=== PATIENT | female | born 1975 | race Caucasian/White ===

== ENCOUNTER → 2017-11-07 15:33 | Outpatient (CLI) | payer MEDICAID, SELFPAY ==
[2017-11-07 20:44] LABS: Chlamydia Trachomatis by PCR Negative (Negative); Neisserai gonorrhoeae by PCR Negative (Negative); Probe Check PASS; Sample Adequacy Control PASS; Specimen Processing Control PASS
[2017-11-10 14:08] LABS: HPV Reflexed? NOT INDICATED
== END ==
PROVIDERS: Visit Provider Obstetrics & Gynecology
DX: Z12.4 Encounter for screening for malignant neoplasm of cervix (principal); Z11.3 Encounter for screening for infections with a predominantly sexual mode of transmission
CPT/HCPCS: 87491; 87591; 88175; G0145

== ENCOUNTER → 2017-11-25 11:43 | Outpatient (CLI) | payer MEDICAID, SELFPAY ==
[2017-11-25 13:41] LABS: Color, Urine Straw (Yellow); Glucose, Dipstick Normal (Normal); Ketone-Dipstick Negative (Negative); Leukocyte Esterase-Dipstick 500 /ul (Negative); Nitrite-Dipstick Negative (Negative); Occult Blood-Urine Negative /ul (Negative); Protein-Dipstick Negative (Negative); Specific Gravity, Urine 1.005 (1.002-1.030); Urine Bilirubin Dipstick Negative (Negative); Urine Clarity Clear (Clear); Urine Urobilinogen Normal (Normal)
[2017-11-25 13:52] LABS: Amphetamine Urine VISTA NEGATIVE (<1000 ng/mL); Barbiturate Urine VISTA NEGATIVE (< 200 ng/mL); Benzodiazepine Urine VISTA NEGATIVE (< 200 ng/mL); Cocaine Urine VISTA NEGATIVE (< 300 ng/mL); Ecstacy Urine VISTA NEGATIVE (< 500 ng/mL); Methadone Urine VISTA NEGATIVE (< 300 ng/mL); PCP Urine VISTA NEGATIVE (< 25 ng/mL); THC Urine VISTA NEGATIVE (< 50 ng/mL); Vista UDS pH Range 7
[2017-11-25 14:06] LABS: Absolute Lymphocyte Count 1.83 X10^3/ul (0.83-4.51); Absolute Neutrophil Count 5.6 X10^3/uL (2.0-7.7); Basophil# 0.02 X10^3/uL; Basophil% 0.3 % (0-1); Eosinophil# 0.07 X10^3/uL; Eosinophils% 0.9 % (0-5); Hematocrit 42.5 % (37-47); Hemoglobin 13.8 g/dl (12.0-15.0); Lymphocyte # 1.83 X10^3/ul (4.0); Lymphocyte % 23.1 % (19-41); Mean Corp Hgb Conc 32.5 g/gl (32-36); Mean Corpuscular Hgb 30.6 pg (27.0-32.0); Mean Corpuscular Volume 94.2 fL (81-99); Mean Platelet Vol. 10.1 fl (6.2-12.0); Monocyte# 0.41 X10^3/uL; Monocyte% 5.2 % (0-10); Neutrophil # 5.57 X10^3/uL (2.7-7.7); Neutrophil % 70.2 % (47-70); Platelet Count 223 K/mm3 (150-450); RBC Distribution Width CV 13.2 % (11.6-14.6); RBC Distribution Width SD 45.7 fl (35.1-43.9); Red Blood Count 4.51 M/mm3 (4.2-5.4); White Blood Count 7.9 K/mm3 (4.4-11.0)
[2017-11-25 14:08] LABS: Thyroid Stim Hormone (TSH) 0.51 uIU/mL (0.358-3.74)
[2017-11-25 14:12] LABS: POSITIVE COUNT NO; POSITIVE DIFFERENTIAL NO; POSITIVE MORPHOLOGY NO
[2017-11-25 14:49] LABS: HIV - WCH Non-Reactive (Nonreactive)
[2017-11-26 10:58] LABS: HEPATITIS B SURFACE AG Negative (Negative); Hep C Antibodies <0.1 s/co ratio (0.0-0.9)
[2017-12-02 01:20] LABS: Prenatal RPR NONREACTIVE (NONREACTIVE)
== END ==
PROVIDERS: Visit Provider Obstetrics & Gynecology
DX: Z34.81 Encounter for supervision of other normal pregnancy, first trimester (principal)
CPT/HCPCS: 36415; 80307; 81002; 84443; 85025; 86703; 86762; 86803; 87340

== ENCOUNTER → 2018-03-17 09:15 | Outpatient (CLI) | payer MEDICAID, SELFPAY ==
[2018-03-17 11:06] LABS: Hematocrit 35.6 % (37-47); Hemoglobin 11.5 g/dl (12.0-15.0); Mean Corp Hgb Conc 32.3 g/gl (32-36); Mean Corpuscular Hgb 31.9 pg (27.0-32.0); Mean Corpuscular Volume 98.6 fL (81-99); Mean Platelet Vol. 9.8 fl (6.2-12.0); Platelet Count 231 K/mm3 (150-450); RBC Distribution Width CV 12.9 % (11.6-14.6); RBC Distribution Width SD 45.1 fl (35.1-43.9); Red Blood Count 3.61 M/mm3 (4.2-5.4); White Blood Count 6.2 K/mm3 (4.4-11.0)
[2018-03-17 11:07] LABS: Scan Indicated on CBC? Y/N NO
[2018-03-17 11:32] LABS: Glucose Challenge Gest 1H 50g 81 mg/dL (70-140)
== END ==
PROVIDERS: Visit Provider Obstetrics & Gynecology
DX: Z34.82 Encounter for supervision of other normal pregnancy, second trimester (principal)
CPT/HCPCS: 36415; 82950; 85027

== ENCOUNTER → 2018-05-22 17:06 | Outpatient (CLI) | payer MEDICAID, SELFPAY | PROVIDERS: Visit Provider Obstetrics & Gynecology | DX: Z36.85 Encounter for antenatal screening for Streptococcus B (principal) | CPT/HCPCS: 87081 ==

== ENCOUNTER 2018-06-20 06:48 | Inpatient (IN) | payer MEDICAID, SELFPAY ==
[2018-06-20 06:57] VITALS: BMI 27.3
[2018-06-20] MEDS: Oxytocin 30 units/NS 500 ml 30 UNITS/500 ML IV.SOLN IV (08:00)
[2018-06-20] MEDS: Lactated Ringers 1,000 ML 50 ML IV ×2 (08:00→14:19)
[2018-06-20 09:11] LABS: Hematocrit 36.9 % (37-47); Hemoglobin 11.9 g/dl (12.0-15.0); Mean Corp Hgb Conc 32.2 g/gl (32-36); Mean Corpuscular Hgb 31.2 pg (27.0-32.0); Mean Corpuscular Volume 96.6 fL (81-99); Mean Platelet Vol. 9.9 fl (6.2-12.0); Platelet Count 182 K/mm3 (150-450); RBC Distribution Width CV 14.1 % (11.6-14.6); RBC Distribution Width SD 49.9 fl (35.1-43.9); Red Blood Count 3.82 M/mm3 (4.2-5.4); White Blood Count 7.2 K/mm3 (4.4-11.0)
[2018-06-20 09:12] LABS: Scan Indicated on CBC? Y/N NO
--- NOTE | 2018-06-20 11:55 | PCM.PN.BLA ---
Progress Note 40 5/7 wk induction. Feeling some UCs. nothing very painful AVSS pitocin at 6 mIU/min EFM 120-130s with avg variability. Accels. UCs q 2-3 min for most part CX: /-3 vtx well applied to cervix. AROM mod clear fluid noted A/P: 40 5/7 wk EGA Pitocin induction. AROM now. Continue induction OK for epidural if requested. Anticipate .
[2018-06-20] MEDS: fentaNYL-bupivacaine (epidural) 100 ML BAG EPIDURAL (14:45)
[2018-06-20] MEDS: Ondansetron 4 MG/2 ML Vial IV (15:20)
[2018-06-20] MEDS: Oxytocin 30 units/NS 500 ml 30 UNITS/500 ML IV.SOLN 334 UNITS IV (17:24)
[2018-06-20] MEDS: Oxytocin 30 units/NS 500 ml 30 UNITS/500 ML IV.SOLN 167 UNITS IV (17:54)
--- NOTE | 2018-06-20 17:54 | PCM.OB.VAG ---
Vaginal Delivery Maternal Presentation: Medically Indicated Induction Method of Induction: Pitocin, Amniotomy Amniotic Membrane Rupture Type: Artificial Amniotic Fluid Description: Clear Final ARISTIDES: 06/15/18 Final ARISTIDES Source: US <20 weeks Gestational age: 40 Weeks and 5 Days Date of Procedure: 06/20/18 Pre-Operative Diagnosis: 40 5/7 wk induction Post-Operative Diagnosis: same Surgery/ Procedure Performed: Spontaneous Vaginal Delivery Type of Anesthesia: Epidural Description of Procedure: of a tay viable female over 2nd deg midline episiotomy. Head delivered JILL. OP and nares bulb suctioned on perineum. Loose nuchal cord / body cord noted. Shoulders delivered through cord. Cord around body, ankle reduced. Infant to maternal abdomen. Delayed cord clamping employed. Cord clamped x two and cut. Routine cord blood for typing collected. Ap 8/9 Weight pending PP exam; Midline episiotomy repaired to hemostatic, intact under epidural with 3-0 Vicryl suture. Abrasions noted at posterior perineum, and anterior labia/periurethral tissue. All hemostatic. Placenta delivered by spont expulsion, expression 3v normal appearing, intact with trailing membranes EBL 350 cc Pt and infant tolerated delivery well. To recovery in stable condition Presentation: Vertex Placental Delivery Description: Spontaneous, Expressed Placenta Disposition: [facility] Cord Vessel Description: 3 Vessels Cord Entanglement: Around neck x 1, loose - around ankle also , around body. Reduced all at delivery. Estimated Blood Loss: 350 A gender: Female (1 minute): 8 (5 minute): 9 Episiotomy Description: Midline Laceration: None - abrasions only Medications given after delivery: IV Pitocin Complications: None
--- NOTE | 2018-06-20 17:59 | OP.PCM_ITS ---
Vaginal Delivery Maternal Presentation: Medically Indicated Induction Method of Induction: Pitocin, Amniotomy Amniotic Membrane Rupture Type: Artificial Amniotic Fluid Description: Clear Final ARISTIDES: 06/15/18 Final ARISTIDES Source: US <20 weeks Gestational age: 40 Weeks and 5 Days Date of Procedure: 06/20/18 Pre-Operative Diagnosis: 40 5/7 wk induction Post-Operative Diagnosis: same Surgery/ Procedure Performed: Spontaneous Vaginal Delivery Type of Anesthesia: Epidural Description of Procedure: of a tay viable female over 2nd deg midline episiotomy. Head delivered JILL. OP and nares bulb suctioned on perineum. Loose nuchal cord / body cord noted. Shoulders delivered through cord. Cord around body, ankle reduced. Infant to maternal abdomen. Delayed cord clamping employed. Cord clamped x two and cut. Routine cord blood for typing collected. Ap 8/9 Weight pending PP exam; Midline episiotomy repaired to hemostatic, intact under epidural with 3-0 Vicryl suture. Abrasions noted at posterior perineum, and anterior labi a/periurethral tissue. All hemostatic. Placenta delivered by spont expulsion, expression 3v normal appearing, intact with trailing membranes EBL 350 cc Pt and tolerated delivery well. To recovery in stable condition Presentation: Vertex Placental Delivery Description: Spontaneous, Expressed Placenta Disposition: [facility] Cord Vessel Description: 3 Vessels Cord Entanglement: Around neck x 1, loose - around ankle also , around body. R educed all at delivery. Estimated Blood Loss: 350 A gender: Female (1 minute): 8 (5 minute): 9 Episiotomy Description: Midline Laceration: None - abrasions only Medications given after delivery: IV Pitocin Complications: None
[2018-06-20] MEDS: Ibuprofen 600 MG Tablet PO (23:58)
[2018-06-21] VITALS: BP 125/59; PULSE 95; RESP 16; TEMP 36.6; O2SAT 97
[2018-06-21] MEDS: Acetaminophen 500 MG Tablet 1000 MG PO (04:27)
[2018-06-21 04:31] VITALS: BP 111/60; PULSE 77; RESP 16; TEMP 36.5; O2SAT 97
[2018-06-21 06:00] LABS: Hematocrit 32.4 % (37-47); Hemoglobin 10.7 g/dl (12.0-15.0); Mean Corpuscular Hgb 31.6 pg (27.0-32.0); Mean Corpuscular Volume 95.6 fL (81-99); Mean Platelet Vol. 9.6 fl (6.2-12.0); Platelet Count 148 K/mm3 (150-450); RBC Distribution Width CV 13.9 % (11.6-14.6); RBC Distribution Width SD 48.5 fl (35.1-43.9); Red Blood Count 3.39 M/mm3 (4.2-5.4); White Blood Count 11.3 K/mm3 (4.4-11.0)
[2018-06-21 06:12] LABS: Scan Indicated on CBC? Y/N NO
--- NOTE | 2018-06-21 06:39 | PCM.DCVAG ---
Discharge Diet: No Restrictions Discharge Activity: May Shower, May Take a Tub Bath May resume sexual activity in: 4-6 weeks Additional Activity Instructions:: Nothing in the vagina for 4-6 weeks. You may return to work/school in 6 weeks. Additional Instructions: If you experience any of the following, contact your healthcare provider. Bleeding that soaks a pad every hour for 2 hours Fever 100.4 or higher Unrelieved abdominal pain Problems urinating (including inability to urinate or burning while urinating). Visual changes Severe headache Flu-like symptoms Pain or redness in one of both of your breasts Pain, warmth, tenderness or swelling in your legs, especially the calf area Frequent nausea and vomiting Symptoms of depression or anxiety If you experience any of the following, call 911 or go to the nearest Emergency Room. Chest pain Problems breathing Seizure activity Partial or complete paralysis of a body part, slurred speech, weakness or drooping of the face, or a sudden inability to walk or hold your balance Allergies/Adverse Reactions: Allergies amoxicillin Allergy (Verified 06/20/18 07:27) Rash Medications to take at Discharge Vits [Prenatabs FA] 1 tablet PO DAILY 06/20/18 Please Follow Up With: Ivania Saldivar MD - [phone] When: Call to make an appointment with your doctor in 6 weeks. Primary Care Physician: Care Physician,No Primary [Primary Care Provider] - Test Results: Test results from this visit will be discussed in further detail at your follow-up appointment, if applicable. Proposed Discharge Date: 06/22/18
--- NOTE | 2018-06-21 06:40 | DCINST_ITS ---
Discharge Diet: No Restrictions Discharge Activity: May Shower, May Take a Tub Bath May resume sexual activity in: 4-6 weeks Additional Activity Instructions:: Nothing in the vagina for 4-6 weeks. You may return to work/school in 6 weeks. Additional Instructions: If you experience any of the following, contact your healthcare provider. * Bleeding that soaks a pad every hour for 2 hours * Fever 100.4 or higher * Unrelieved abdominal pain * Problems urinating (including inability to urinate or burning while urinating). * Visual changes * Severe headache * Flu-like symptoms * Pain or redness in one of both of your breasts * Pain, warmth, tenderness or swelling in your legs, especially the calf area * Frequent nausea and vomiting * Symptoms of depression or anxiety If you experience any of the following, call 911 or go to the nearest Emergency Room. * Chest pain * Problems breathing * Seizure activity * Partial or complete paralysis of a body part, slurred speech, weakness or drooping of the face, or a sudden inability to walk or hold your balance Allergies/Adverse Reactions: Allergies amoxicillin Allergy (Verified 06/20/18 07:27) Rash Medications to take at Discharge Vits [Prenatabs FA] 1 tablet PO DAILY 06/20/18 Please Follow Up With: Ivania Saldivar MD - [phone] When: Call to make an appointment with your doctor in 6 weeks. Primary Care Physician: Care Physician,No Primary [Primary Care Provider] - Test Results: Test results from this visit will be discussed in further detail at your follow- up appointment, if applicable. Proposed Discharge Date: 06/22/18
--- NOTE | 2018-06-21 06:52 | PCM.PN.OB ---
Subjective: PPD#1 Doing well. Baby nursing. Some pain with nursing at nipples, and cramping of uterus. Ibuprofen prn for this. No concerns voiced. Baby 7# 11 oz Objective: sitting up in chair, rocking baby. - Physical Exam General: Alert, Oriented x3, Cooperative, No apparent distress HEENT: Atraumatic Neck: Supple Neurological: Cranial nerves II-XII grossly intact Psych/Mental Status: Normal Affect Vital Signs Temp Pulse Resp BP Pulse Ox 97.7 F L 77 16 111/60 97 06/21/18 04:31 06/21/18 04:31 06/21/18 04:31 06/21/18 04:31 06/21/18 04:31 Oxygen Delivery Method Room Air Weight: 80.4 kg Body Mass Index (BMI) 27.3 Intake and Output for Last 24 Hours 06/19/18 06/20/18 06/21/18 23:59 23:59 23:59 Intake Total 2461 / 2461 Output Total 800 / 800 Balance 1661 / 1661 Laboratory Tests Past 24 Hrs 06/20/18 06/20/18 06/21/18 07:50 07:50 05:45 WBC 7.2 11.3 H RBC 3.82 L 3.39 L Hgb 11.9 L 10.7 L Hct 36.9 L 32.4 L MCV 96.6 95.6 MCH 31.2 31.6 MCHC 32.2 33.0 RDW 14.1 13.9 RDW Differential 49.9 H 48.5 H Plt Count 182 148 L MPV 9.9 9.6 Blood Type O POSITIVE Antibody Screen NEGATIVE Medical Necessity - Tobacco Use Smoking Status: Former smoker Assessment/Plan PPD#1 Doing well. Would like to go home today if baby released . RTO in 6 wk for pp check, prn sooner. Hold/cancel dischg if baby is not released to home today.
[2018-06-21 09:20] VITALS: BP 119/63; PULSE 95; RESP 20; TEMP 36.8
[2018-06-21] MEDS: Ibuprofen 600 MG Tablet PO (12:57)
[2018-06-21] MEDS: Prenatal Vits Tablet 1 TABLET PO (12:59)
[2018-06-21 13:00] VITALS: BP 131/71; PULSE 105; RESP 18; TEMP 36.3; O2SAT 97
[2018-06-21 17:00] VITALS: BP 104/48; PULSE 75; RESP 16; TEMP 36.8; O2SAT 96
--- NOTE | 2018-06-21 19:50 | NURSING ---
SW aware of PHQ-2 and PHQ-9 results - given resources by SW and pt. verbalized understanding. Pt. had stated no about feeling down depressed or hopeless, but then stated but, you know, I have extenuating circumstances with my and my kids... which led nursing to give pt. the PHQ-9 to complete. Score of 0 to PHQ-9.
--- NOTE | 2018-06-26 18:40 | NURSING ---
follow up phone complete and patient denies problems or concerns
--- OUTSIDE RECORDS SUMMARY | 2018-08-06 05:23 | XMS RPT_ITS ---
:1975 Author Organization OHIP Care Team Providers Name Role Phone Ivania Saldivar Admitting Unavailable Ivania Saldivar Attending Unavailable Ivania Saldivar Referring Unavailable Primay Care Physicia, No Primary Care Unavailable Ivania Saldivar Attending Unavailable Ivania Saldivar Attending Unavailable Ivania Saldivar Attending Unavailable Ivania Saldivar Attending Unavailable PROBLEMS PROBLEMS DATE TYPE CONDITION / CODE ATTENDING STATUS SOURCE 05/22/2018 Unknown Z36.85 - Encounter Ivania Saldivar Active [place] for Community screening for Hospital Streptococcus B / Repository Z36.85(ICD-10) 03/17/2018 Unknown Z34.82 - Encounter Ivania Saldivar Active [place] for supervision of Community other normal Hospital , second Repository trimester / Z34.82(ICD-10) 11/25/2017 Unknown Z34.81 - Encounter Ivania Saldivar Active [place] for supervision of Community other normal Hospital , first Repository trimester / Z34.81(ICD-10) 11/07/2017 Unknown Z12.4 - Encounter Ivania Saldivar Active [place] for screening for Community malignant neoplasm Hospital of cervix / Repository Z12.4(ICD-10) 11/07/2017 Unknown Z11.3 - Encounter Ivania Saldivar Active [place] for screening for Community infections with a Hospital predominantly Repository sexual mode of transmission / Z11.3(ICD-10) PROCEDURES PROCEDURES No Procedure Records FoundRESULTS RESULTS DISCHARGE INSTRUCTION Observed: 06/21/2018 Status: F Source: SARAH 6:40 AM [facility] REPOSITORY [facility] Medical Records Department [address] [place] [address] Instructions for Home/Discharge Instructions 06/21/18 0639 MR#: [id number] Acct: [id number] Name: WILLIS VERONICA Rep #: [id number] : 1975 43 From: Ivania Saldivar MD PCP: Care Physician, No Primary Status: ADM IN Discharge Diet: No Restrictions Discharge Activity: May Shower, May Take a Tub Bath May resume sexual activity in: 4-6 weeks Additional Activity Instructions:: Nothing in the vagina for 4-6 weeks. You may return to work/school in 6 weeks. Additional Instructions: If you experience any of the following, contact your healthcare provider. * Bleeding that soaks a pad every hour for 2 hours * Fever 100.4 or higher * Unrelieved abdominal pain * Problems urinating (including inability to urinate or burning while urinating). * Visual changes * Severe headache * Flu-like symptoms * Pain or redness in one of both of your breasts * Pain, warmth, tenderness or swelling in your legs, especially the calf area * Frequent nausea and vomiting * Symptoms of depression or anxiety If you experience any of the following, call 911 or go to the nearest Emergency Room. * Chest pain * Problems breathing * Seizure activity * Partial or complete paralysis of a body part, slurred speech, weakness or drooping of the face, or a sudden inability to walk or hold your balance Allergies/Adverse Reactions: Allergies amoxicillin Allergy (Verified 06/20/18 07:27) Rash Medications to take at Discharge Vits [Prenatabs FA] 1 tablet PO DAILY 06/20/18 Please Follow Up With: Ivania Saldivar MD - [phone] When: Call to make an appointment with your doctor in 6 weeks. Primary Care Physician: Care Physician,No Primary [Primary Care Provider] - Test Results: Test results from this visit will be discussed in further detail at your follow-up appointment, if applicable. Proposed Discharge Date: 06/22/18 06/21/18 0640 <Electronically signed by Ivania Saldivar MD> Date Ivania Saldivar MD CC: No Primary Care Physician CBC-COMPLETE BLOOD CNT Collected: 06/21/2018 Status: F Source: SARAH NO DIFF 5:45 AM [facility] REPOSITORY Order Comment: Reason for Laboratory Test Day #1 TYPE CODE TESTS RESULT OUT OF RANGE REFERENCE UNITS LAB L100.1000 4.4-11.0 K/mm3 High WBC 11.3 LAB L100.1200 4.2-5.4 M/mm3 Low RBC 3.39 LAB L100.1300 12.0-15.0 g/dl Low HGB 10.7 LAB L100.1400 37-47 % Low HCT 32.4 LAB L100.1500 81-99 fL Normal MCV 95.6 LAB L100.1600 27.0-32.0 pg Normal MCH 31.6 LAB L100.1700 32-36 g/gl Normal MCHC 33.0 LAB L100.1810 11.6-14.6 % Normal RDW CV 13.9 LAB L100.1820 35.1-43.9 fl High RDW SD 48.5 LAB L100.1900 150-450 K/mm3 Low PLT 148 LAB L100.2000 6.2-12.0 fl Normal MPV 9.6 Performed By: #### L100.0500 #### [facility] [address] [place], [address] OPERATIVE REPORT Observed: 06/20/2018 Status: F Source: WATERPROOF 6:00 PM [facility] REPOSITORY [facility] Medical Records Department [address] [place] [address] Operative Report 06/20/18 1754 MR#: [id number] Acct: [id number] Name: WILLIS VERONICA Rep #: [id number] : 1975 43 From: Ivania Saldivar MD PCP: Care Physician, No Primary Status: ADM IN Location: [place] [address] Vaginal Delivery Maternal Presentation: Medically Indicated Induction Method of Induction: Pitocin, Amniotomy Amniotic Membrane Rupture Type: Artificial Amniotic Fluid Description: Clear Final ARISTIDES: 06/15/18 Final ARISTIDES Source: US <20 weeks Gestational age: 40 Weeks and 5 Days Date of Procedure: 06/20/18 Pre-Operative Diagnosis: 40 5/7 wk induction Post-Operative Diagnosis: same Surgery/ Procedure Performed: Spontaneous Vaginal Delivery Type of Anesthesia: Epidural Description of Procedure: of a tay viable female over 2nd deg midline episiotomy. Head delivered JILL. OP and nares bulb suctioned on perineum. Loose nuchal cord / body cord noted. Shoulders delivered through cord. Cord around body, ankle reduced. to maternal abdomen. Delayed cord clamping employed. Cord clamped x two and cut. Routine cord blood for typing collected. Ap 8/9 Weight pending PP exam; Midline episiotomy repaired to hemostatic, intact under epidural with 3-0 Vicryl suture. Abrasions noted at posterior perineum, and anterior labia/periurethral tissue. All hemostatic. Placenta delivered by spont expulsion, expression 3v normal appearing, intact with trailing membranes EBL 350 cc Pt and tolerated delivery well. To recovery in stable condition Presentation: Vertex Placental Delivery Description: Spontaneous, Expressed Placenta Disposition: [facility] Cord Vessel Description: 3 Vessels Cord Entanglement: Around neck x 1, loose - around ankle also , around body. Reduced all at delivery. Estimated Blood Loss: 350 A gender: Female (1 minute): 8 (5 minute): 9 Episiotomy Description: Midline Laceration: None - abrasions only Medications given after delivery: IV Pitocin Complications: None 06/20/18 1800 <Electronically signed by Ivania Saldivar MD> Date Ivania Saldivar MD CC: No Primary Care Physician; Ivania Saldivar MD Signed CBC-COMPLETE BLOOD CNT Collected: 06/20/2018 Status: F Source: [place] NO DIFF 7:50 AM [facility] REPOSITORY TYPE CODE TESTS RESULT OUT OF RANGE REFERENCE UNITS LAB L100.1000 4.4-11.0 K/mm3 Normal WBC 7.2 LAB L100.1200 4.2-5.4 M/mm3 Low RBC 3.82 LAB L100.1300 12.0-15.0 g/dl Low HGB 11.9 LAB L100.1400 37-47 % Low HCT 36.9 LAB L100.1500 81-99 fL Normal MCV 96.6 LAB L100.1600 27.0-32.0 pg Normal MCH 31.2 LAB L100.1700 32-36 g/gl Normal MCHC 32.2 LAB L100.1810 11.6-14.6 % Normal RDW CV 14.1 LAB L100.1820 35.1-43.9 fl High RDW SD 49.9 LAB L100.1900 150-450 K/mm3 Normal PLT 182 LAB L100.2000 6.2-12.0 fl Normal MPV 9.9 Performed By: #### L100.0500 #### [facility] [address] [place], [place], [address] TYPE AND SCREEN Collected: 06/20/2018 Status: F Source: SARAH 7:50 AM [facility] REPOSITORY Order Comment: Reason for Type AND Screen/Red Cells: TYPE CODE TESTS RESULT OUT OF RANGE REFERENCE UNITS LAB B10.0800 O Normal BLOOD TYPE GEL POSITIVE LAB B100.4000 Normal Antibody NEGATIVE Screen Performed By: #### B101.7450 #### [facility] [address] [place], [address] Observed: 05/22/2018 Status: F Source: SARAH CULTURE, GROUP B 5:00 PM [facility] STREPTOCOCCUS REPOSITORY Comments: VAGINAL/RECTAL EDISON Culture Group B Beta Streptococcus is not isolated. Performed By: #### M100.1800 #### [facility] [address] [place], [address] CBC-COMPLETE BLOOD CNT Collected: 03/17/2018 Status: F Source: SARAH NO DIFF 9:20 AM [facility] REPOSITORY TYPE CODE TESTS RESULT OUT OF RANGE REFERENCE UNITS LAB L100.1000 4.4-11.0 K/mm3 Normal WBC 6.2 LAB L100.1200 4.2-5.4 M/mm3 Low RBC 3.61 LAB L100.1300 12.0-15.0 g/dl Low HGB 11.5 LAB L100.1400 37-47 % Low HCT 35.6 LAB L100.1500 81-99 fL Normal MCV 98.6 LAB L100.1600 27.0-32.0 pg Normal MCH 31.9 LAB L100.1700 32-36 g/gl Normal MCHC 32.3 LAB L100.1810 11.6-14.6 % Normal RDW CV 12.9 LAB L100.1820 35.1-43.9 fl High RDW SD 45.1 LAB L100.1900 150-450 K/mm3 Normal PLT 231 LAB L100.2000 6.2-12.0 fl Normal MPV 9.8 Performed By: #### L100.0500 #### [facility] [address] [place], [address] GLUCOSE CHALLENGE GEST Collected: 03/17/2018 Status: F Source: SARAH 1H 50G 9:20 AM [facility] REPOSITORY TYPE CODE TESTS RESULT OUT OF RANGE REFERENCE UNITS LAB L501.0250 70-140 mg/dL Normal GLU GEST 81 50g 1H Performed By: #### L501.0250 #### [facility] [address] [facility] [place], [address] URINE DRUG SCREEN Collected: 11/25/2017 Status: F Source: SARAH (VISTA) 11:49 AM [facility] REPOSITORY Order Comment: List of Drugs Taken or Suspected? UNK TYPE CODE TESTS RESULT OUT OF RANGE REFERENCE UNITS LAB L505.0075 TO BE Normal CONFIRMED Result Comment: CONFIRMATORY TESTING FOR ALL POSITIVE URINE DRUG SCREEN RESULTS WILL ONLY BE SENT OUT UPON PHYSICIAN ORDER. VISTA Urine Drug Screen methods provide only preliminary analytical test results. A more specific alternate chemical method must be used in order to obtain a confirmed analytical result. Gas chromatography/mass spectrometery (GC/MS) is the preferred confirmatory method. Clinical consideration and professional judgement should be applied to any drug of abuse test result, particularly when preliminary positive results are used. URINE TCA TESTING MUST BE ORDERED SEPARATELY. USE TEST MNEMONIC: [facility] LAB L505.5005 VISTA UDS PH 7 Normal LAB L505.5015 <1000 ng/mL AMPHETAMINES Normal NEGATIVE LAB L505.5025 < 200 ng/mL BARBITIURATES Normal NEGATIVE LAB L505.5035 < 200 ng/mL BENZODIAZIPINE Normal NEGATIVE LAB L505.5045 < 300 ng/mL COCAINE Normal NEGATIVE LAB L505.5055 < 500 ng/mL ECSTACY Normal NEGATIVE LAB L505.5065 < 300 ng/mL METHADONE Normal NEGATIVE LAB L505.5075 < 300 ng/mL OPIATES Normal NEGATIVE LAB L505.5085 < 25 ng/mL PCP Normal NEGATIVE LAB L505.5095 < 50 ng/mL THC Normal NEGATIVE Performed By: #### L505.5000 #### [facility] [place], [address] URINALYSIS, ROUTINE Collected: 11/25/2017 Status: F Source: SARAH (DIPSTICK) 11:49 AM [facility] REPOSITORY Order Comment: How was Urine Obtained? Urine, Random TYPE CODE TESTS RESULT OUT OF RANGE REFERENCE UNITS LAB L400.3000 Yellow COLOR Normal Straw LAB L400.3050 Clear Normal CLARITY Clear LAB L400.3200 Normal mg/dl Normal GLUCOSE, UR Normal LAB L400.3300 Negative mg/dL Normal BILIRUBIN URINE Negative LAB L400.3400 Negative mg/dl Normal KETONE UR Negative LAB L400.3465 1.002-1.030 Normal SP.GR. DIPSTX 1.005 LAB L400.3550 5.0 - 8.0 pH UR Normal 7.0 LAB L400.3600 Negative mg/dl PROT Normal DIPSTX Negative LAB L400.3700 Normal mg/dl Normal UROBILI Normal LAB L400.3750 Negative Normal NITRITE UR Negative LAB L400.3780 Negative /ul Normal OCCULT BLOOD-UR Negative LAB L400.3800 Negative /ul High LEUK ESTERASE 500 Performed By: #### L400.2010 #### [facility] [address] [place], [address] THYROID STIM HORMONE Collected: 11/25/2017 Status: F Source: [place] (TSH) 11:49 AM [facility] REPOSITORY TYPE CODE TESTS RESULT OUT OF RANGE REFERENCE UNITS LAB L501.9520 0.358-3.74 uIU/mL Normal TSH 0.51 Performed By: #### L501.9520 #### [facility] [address] [place], [address] CBC W/DIFF, AUTOMATED Collected: 11/25/2017 Status: F Source: [place] 11:49 AM [facility] REPOSITORY TYPE CODE TESTS RESULT OUT OF RANGE REFERENCE UNITS LAB L100.1000 4.4-11.0 K/mm3 Normal WBC 7.9 LAB L100.1200 4.2-5.4 M/mm3 Normal RBC 4.51 LAB L100.1300 12.0-15.0 g/dl Normal HGB 13.8 LAB L100.1400 37-47 % Normal HCT 42.5 LAB L100.1500 81-99 fL Normal MCV 94.2 LAB L100.1600 27.0-32.0 pg Normal MCH 30.6 LAB L100.1700 32-36 g/gl Normal MCHC 32.5 LAB L100.1810 11.6-14.6 % Normal RDW CV 13.2 LAB L100.1820 35.1-43.9 fl High RDW SD 45.7 LAB L100.1900 150-450 K/mm3 Normal PLT 223 LAB L100.2000 6.2-12.0 fl Normal MPV 10.1 LAB L100.2100 47-70 % High NEUT% 70.2 LAB L100.2200 19-41 % Normal LY% 23.1 LAB L100.2300 0-10 % Normal MONO% 5.2 LAB L100.2400 0-5 % Normal EO% 0.9 LAB L100.2500 0-1 % Normal BASO% 0.3 LAB L100.2550 0.0-0.9 % Normal IM GRAN % 0.300 Result Comment: IG% - Immature Granulocytes (promyelocytes, myelocytes and metamyelocytes) > 1% indicates that a LEFT SHIFT is Present. LAB L100.2620 2.0-7.7 X10 3/uL Normal Absolute Neut 5.6 LAB L100.2720 0.83-4.51 X10 3/ul Normal Absolute Lymph 1.83 Performed By: #### L100.0100 #### [facility] [address] [facility] [place], [place], [address] T AND S-NO Collected: 11/25/2017 Status: F Source: [place] CHARGE W/PNP 11:49 AM [facility] REPOSITORY Order Comment: Reason for Type AND Screen/Red Cells: Surgery? N TYPE CODE TESTS RESULT OUT OF RANGE REFERENCE UNITS LAB B10.0800 O Normal BLOOD POSITIVE TYPE GEL LAB B100.4050 Normal Ab SCREEN NEGATIVE GEL Performed By: #### B100.7550 #### [facility] [address] [facility] [place], [place], [address] RUBELLA IGG Collected: 11/25/2017 Status: F Source: [place] 11:49 AM [facility] REPOSITORY TYPE CODE TESTS RESULT OUT OF RANGE REFERENCE UNITS LAB L509.4000 IU/mL Normal Rubella IgG 59.0 Result Comment: Antibody results Interpretation of Immune Status < 5 IU/ml Presumed Non-immune 5 - < 10 IU/ml Equivocal > or = 10 IU/ml Presumed Immune Performed By: #### L509.4000, L3890.6005 #### [facility] [address] [facility] [place], [place], [address] HIV - WCH Collected: 11/25/2017 Status: F Source: [place] 11:49 AM [facility] REPOSITORY TYPE CODE TESTS RESULT OUT OF RANGE REFERENCE UNITS LAB L3890.6005 Nonreactive Normal HIV - WCH Non-Reactive Performed By: #### L509.4000, L3890.6005 #### [facility] [address] [facility] [place], [address] HEPATITIS B SURFACE Collected: 11/25/2017 Status: F Source: SARAH AG 11:49 AM [facility] REPOSITORY TYPE CODE TESTS RESULT OUT OF RANGE REFERENCE UNITS LAB L3100.0400 Negative Normal HB Negative SURF AG Result Comment: Performed at: [address] [id number] Tailing Hand: Aj Amador PhD, Phone: [phone] Performed By: #### L3100.0390, L3100.0625 #### [facility] (refer to report for specific site) refer to report for address and phone number HEPATITIS C ANTIBODIES Collected: 11/25/2017 Status: F Source: SARAH 11:49 AM [facility] REPOSITORY TYPE CODE TESTS RESULT OUT OF RANGE REFERENCE UNITS LAB L3100.0650 0.0-0.9 s/co ratio Normal HEP C AB <0.1 Result Comment: Negative: < 0.8 Indeterminate: 0.8 - 0.9 Positive: > 0.9 The CDC recommends that a positive HCV antibody result be followed up with a HCV Nucleic Acid Amplification test (498675). Performed By: #### L3100.0390, L3100.0625 #### [facility] (refer to report for specific site) refer to report for address and phone number RPR Collected: 11/25/2017 Status: F Source: SARAH 11:49 AM [facility] REPOSITORY TYPE CODE TESTS RESULT OUT OF REFERENCE UNITS RANGE LAB L700.5100 NONREACTIVE Normal RPR NONREACTIVE Performed By: #### L700.5100 #### [facility] [address] [facility] [place], [place], [id number] CT/NG WCH BY PCR Collected: 11/07/2017 Status: F Source: SARAH 2:45 PM [facility] REPOSITORY TYPE CODE TESTS RESULT OUT OF RANGE REFERENCE UNITS LAB L8200.2100 Negative Normal Chlam Negative Trac PCR LAB L8200.2200 Negative Normal NG by Negative PCR Performed By: #### L8200.2000 #### [facility] [address] [facility] [place], [address] PAP I-G W/RFX HRHPV Collected: 11/07/2017 Status: F Source: SARAH 2:45 PM [facility] REPOSITORY Order Comment: CYTOLOGY INFORMATION: - CLINICAL INFORMATION: - DATE LMP/MENOPAUSE: 09/08/17 LMP - COLLECTION VIAL: Thin Prep Vial - AIRPLANE FIRST OFFICER SOURCE: CERVICAL/ENDOCERVICAL - COLLECTION TECHNIQUE: BRUSH/SPATULA Specimen Comment: [id number] Specimen Comment: No. of containers..01 ThinPrep Vial TYPE CODE TESTS RESULT OUT OF RANGE REFERENCE UNITS LAB L7400.0800 . Normal DIAGN Comment Result Comment: NEGATIVE FOR INTRAEPITHELIAL LESION AND MALIGNANCY. LAB L7400.0900 . Normal ADEQ Comment Result Comment: Satisfactory for evaluation. No endocervical component is identified. An endocervical component is not commonly seen in the patient. LAB L7400.1400 . Normal PERFORM Comment Result Comment: Elo Zavala Flight Line Mechanic (ASCP) LAB L7400.2575 . Normal TEST METHOD Comment Result Comment: This liquid based ThinPrep(R) pap test was screened with the use of an image guided system. LAB L7400.2600 . Normal . COMM LAB L7400.2700 . Normal PAPSMR Comment Result Comment: The Pap smear is a screening test designed to aid in the detection of premalignant and malignant conditions of the uterine cervix. It is not a diagnostic procedure and should not be used as the sole means of detecting cervical cancer. Both false-positive and false-negative reports do occur. LAB L7400.2800 . Normal HPV RFLX Comment Result Comment: The HPV DNA reflex criteria were not met with this specimen result therefore, no HPV testing was performed. Performed at: - [facility] [id number] Tailing Hand: Laurie Hood MD, Phone: [phone] Performed By: #### L7400.0350 #### [facility] (refer to report for specific site) refer to report for address and phone number ALLERGIES ALLERGIES DATE TYPE / CODE NAME / CODE REACTION SEVERITY SOURCE 06/20/2018 Drug amoxicillin/ Rash Unknown [facility] Allergy/4160 [id number](R Hospital [address](SNOMED XNORM) Repository CT) ENCOUNTERS ENCOUNTERS ADMIT/DISCHARGE ACCOUNT ADMITTING ENCOUNTER LOCATION SOURCE NUMBER CLASS 06/20/2018/ [id number] Janna, Inpatient [place] 8 9 Ivania Encounter [facility] ing:WPRoom: Repository [id number]: 1 05/22/2018 [id number] Ambulatory [place] 8 [facility] ing:LABSPEC Repository 03/17/2018 [id number] Ambulatory [place] 7 [facility] ing:WOBLAB Repository 11/25/2017 [id number] Ambulatory [place] 7 [facility] ing:WOBLAB Repository 11/07/2017 [id number] Ambulatory [place] 8 [facility] ing:LABSPEC Repository PAYERS PAYERS ENCOUNTER GUARANTOR PAYER SUBSCRIBER SOURCE 06/20/2018 WILLIS A Primary WILLIS A [place] [id number] [place]ERT Insurance:GWEN CHAN: [facility] [id number] Hospital [address]Vey: ([phone]) PLANPolicy Number: Repository [phone] () [id number] Date:[id number] [address]RH: 06/20/2018 Secondary NOT GIVENUNK [place] Insurance:SELF PAY [facility] Number: Effective Repository Date:2018-06-15 05/22/2018 MARITO E Primary WILLIS [place] [id number] PRISCA Insurance:GWEN CHAN: [facility] [id number] Hospital [address]Wkx: [phone]) PLANPolicy Number: Repository [phone] () [id number] Date:[id number] [address]ZH: 05/22/2018 Secondary NOT GIVENUNK [place] Insurance:SELF PAY [facility] Number: Effective Repository Date:2018-05-22 03/17/2018 MARITO E Primary WILLIS [place] [id number] [place] Insurance:GWEN CHAN: [facility] [id number] Hospital [address]Cnj: [phone]) PLANPolicy Number: Repository [phone] () [id number] Date:[id number] [address]BU: 03/17/2018 Secondary NOT GIVENUNK [place] Insurance:SELF PAY [facility] Number: Effective Repository Date:2018-03-17 11/25/2017 WILLISHER GUILLEN Primary WILLIS [place] [address], Insurance:BUCKEYE JEREMÍASDOB: [facility] [address]Gjf: [facility] [id number] Hospital PLANPolicy Number: Repository () [id number] Date:[id number] [address]DD: 11/25/2017 Secondary NOT GIVENUNK [place] Insurance:SELF PAY [facility] Number: Effective Repository Date:2017-11-25 11/07/2017 MARITO Jensen Primary WILLIS Sarah [id number] [place] Insurance:BUCKOSWALDE YURIB: [facility] [id number] Hospital [address]Pqc: [phone]) PLANPolicy Number: Repository [phone] () [id number] Date:[id number] [place] [address]HQ: 11/07/2017 Secondary NOT GIVENUNK Sarah Insurance:SELF PAY [facility] Number: Effective Repository Date:2017-11-07
== END 2018-06-21 19:40 | disposition home or self-care (01) | DRG 560 ==
PROVIDERS: Admitting Provider Obstetrics & Gynecology; Referring Provider Obstetrics & Gynecology; Visit Provider Obstetrics & Gynecology
DX: O48.0 Post-term pregnancy (principal); Z3A.40 40 weeks gestation of pregnancy; O69.81X0 Labor and delivery complicated by cord around neck, without compression, not applicable or unspecified; O70.1 Second degree perineal laceration during delivery; Z37.0 Single live birth; Z87.891 Personal history of nicotine dependence
CPT/HCPCS: 59025; 59050; 85027; 86850; 86900; 99218; J7120; G0378; J2405

== ENCOUNTER → 2019-06-26 13:51 | Outpatient (CLI) | payer MEDICAID, SELFPAY ==
[2019-06-28 14:08] LABS: Age Gdln ACOG Testing 30-65 (.)
[2019-06-29 16:40] LABS: HPV APTIMA, High Risk Negative (Negative); HPV Reflexed? YES, CHARGE PATIENT
== END ==
PROVIDERS: Referring Provider Advanced Practice Midwife; Visit Provider Advanced Practice Midwife
DX: Z12.4 Encounter for screening for malignant neoplasm of cervix (principal)
CPT/HCPCS: 87624; 88175; G0145

== ENCOUNTER → 2021-12-31 | Outpatient (CLI) | payer BC, SELFPAY ==
[2022-01-05 10:28] LABS: HPV APTIMA, High Risk Negative (Negative)
== END | disposition home or self-care (01) ==
PROVIDERS: Visit Provider Student in an Organized Health Care Education/Training Program
DX: Z12.4 Encounter for screening for malignant neoplasm of cervix (principal)
CPT/HCPCS: 87624; 88175; G0145